=== PATIENT | male | born 1985 | race African-American/Black ===

== ENCOUNTER 2023-06-11 10:39 | Emergency (ER) | payer MEDICAID ==
[~2023-06-11] VITALS: Ht 182.9 cm; Wt 82.0 kg
[2023-06-11 10:49] VITALS: BP 146/80; PULSE 100; RESP 18; TEMP 98.4; O2SAT 98
== END 2023-06-11 14:30 | disposition left against medical advice (07) ==
LOC: ER 10:39 → EDBEDREQ 13:37 → EDBEDREQTM 13:37 → CANBEDREQ 14:29 → ER 14:30
DX: K62.89 Other specified diseases of anus and rectum (principal)
CPT/HCPCS: 99283; Z7610

== ENCOUNTER 2023-11-05 05:38 | Emergency (ER) | payer MEDICAID, OTHER ==
[~2023-11-05] VITALS: Ht 172.7 cm; Wt 73.0 kg
[2023-11-05] MEDS ORDERED: TOPUD PO (05:42)
[2023-11-05] MEDS ORDERED: ACETAMINOPHEN 325MG TABLET PO ONE (05:45)
[2023-11-05] MEDS ORDERED: LORAZEPAM 2MG/ML INJ IV ONE (06:00)
[2023-11-05 06:26] LABS: BASOPHILS % 0.9 % (0.0-2.0); EOSINOPHILS % 3.1 % (0.0-5.0); HEMATOCRIT. 35.3 % (42.0-52.0); LYMPHOCYTES % 30.7 % (20.0-50.0); MEAN CORPUSCULAR HEMOGLOBIN 27.1 pg (28.0-32.0); MEAN CORPUSCULAR HGB CONC 31.2 g/dL (31.0-37.0); MEAN PLATELET VOLUME 8.2 fl (7.4-10.4); MONOCYTES % 14.6 % (2.0-8.0); NEUTROPHILS % 50.7 % (40.0-76.0); PLATELET 289 x1000/uL (130-400); RED BLOOD CELL COUNT 4.05 mill/uL (4.7-6.1); RED CELL DISTRIBUTION WIDTH 16.5 % (11.6-14.6); WHITE BLOOD COUNT 5.5 x1000/uL (4.5-11.0)
[2023-11-05] MEDS ORDERED: LORAZEPAM 2MG/ML UD SYRINGE IV NR (06:45)
[2023-11-05] MEDS ORDERED: KETOROLAC 30MG/ML VIAL IV ONE (07:00)
[2023-11-05 07:14] LABS: ALANINE AMINOTRANSFERASE 16 IU/L (10-49); ALBUMIN 3.7 g/dL (3.2-4.8); ASPARTATE AMINOTRANSFERASE 27 IU/L (<34); BILIRUBIN TOTAL 0.2 mg/dL (0.1-1.0); CALCIUM 9.2 mg/dL (8.7-10.4); CARBON DIOXIDE 26 mEq/L (21-32); CHLORIDE 108 mEq/L (98-107); CREATININE 0.7 mg/dL (0.6-1.3); GLUCOSE 96 mg/dL (70-105); POTASSIUM 4.8 mEq/L (3.5-5.1); PROTEIN TOTAL 7.2 g/dL (6.0-8.3); SODIUM 138 mEq/L (136-145); UREA NITROGEN BLOOD 11 mg/dL (9-23)
== END 2023-11-05 09:20 ==
LOC: ER 05:54
DX: K62.3 Rectal prolapse (principal)
CPT/HCPCS: 99283; 96374; 80053; 85025; 36415; J2060